=== PATIENT | male | born 1960 | race African-American/Black ===

== ENCOUNTER 2021-12-23 06:34 | Inpatient (IN) | payer OTHER ==
[2021-12-19 15:14] VITALS: BMI 34.2
[2021-12-23] MEDS ORDERED: Lidocaine 1% MPF 2 ML VIAL ONE (06:58)
[2021-12-23] MEDS ORDERED: CEFAZOLIN 2 GM VIAL ONE (07:02)
[2021-12-23] MEDS ORDERED: Sodium Chloride 0.9% 100 ML ONE (07:02)
[2021-12-23] MEDS ORDERED: Dexmedetomidine 200 MCG/2 ML VIAL ONE (07:03)
[2021-12-23] MEDS ORDERED: fentaNYL Citrate/PF 100 MCG/2 ML SYRINGE ONE ×2 (07:03→08:39)
[2021-12-23] MEDS ORDERED: Thrombin 5000 UNITS/5 ML VIAL ONE (07:17)
[2021-12-23] MEDS ORDERED: Levofloxacin 500 mg/D5W 100 ml Premix Bag ONE (07:38)
[2021-12-23] MEDS ORDERED: Clindamycin/D5W 900 mg/50 ml Premix Bag ONE (07:39)
[2021-12-23] MEDS ORDERED: Glycopyrrolate 0.2 MG/ML 5 ML SYRINGE ONE (08:18)
[2021-12-23] MEDS ORDERED: NEOSTIGMINE 3 MG/3 ML SYR 3 MG/3 ML SYRINGE ONE (08:18)
[2021-12-23] MEDS ORDERED: Rocuronium Bromide 10 MG/ML (10ML VIAL) ONE (08:18)
[2021-12-23] MEDS ORDERED: Ondansetron PF 4 MG/2 ML Vial ONE (08:18)
[2021-12-23] MEDS ORDERED: ePHEDrine 50 MG/ML VIAL ONE (08:18)
[2021-12-23] MEDS ORDERED: PROPOFOL 200 MG/20 ML VIAL ONE (08:18)
[2021-12-23] MEDS ORDERED: Dexamethasone 20 MG/5 ML VIAL ONE (08:18)
[2021-12-23 08:27] LABS: SARS-CoV-2 NAA Rapid Test Not Detected (NotDetected)
[2021-12-23] MEDS ORDERED: SUGAMMADEX SODIUM 200 MG/2 ML VIAL ONE (09:23)
[2021-12-23] MEDS ORDERED: Milk Of Magnesia 30 ML UDCUP PO PRN (09:34)
[2021-12-23] MEDS ORDERED: Cyclobenzaprine 10 MG TAB PO PRN (09:34)
[2021-12-23] MEDS ORDERED: Morphine 2 MG/ML VIAL SLOW IVP PRN (09:34)
[2021-12-23] MEDS ORDERED: diphenhydrAMINE 25 MG CAP PO PRN (09:34)
[2021-12-23] MEDS ORDERED: Ondansetron PF 4 MG/2 ML Vial IVP PRN (09:34)
[2021-12-23] MEDS ORDERED: Promethazine 25 MG TAB PO PRN (09:34)
[2021-12-23] MEDS ORDERED: Acetaminophen/Codeine 30-300mg Tablet PO PRN ×2 (09:34)
[2021-12-23] MEDS ORDERED: Mag-Al 1200 mg/1200 mg/30 ML UDCUP PO PRN (09:34)
[2021-12-23] MEDS ORDERED: traMADol HCl 50 MG TAB PO PRN (09:34)
[2021-12-23] MEDS ORDERED: PROPOFOL 20 ML ONE (09:42)
[2021-12-23] MEDS ORDERED: Morphine 4 MG/ML VIAL SLOW IVP PRN (12:41)
[2021-12-23] MEDS ORDERED: HYDROcodone/Acetaminophen 5/325 mg Tablet PO PRN (13:10)
[2021-12-23] MEDS: Clindamycin/D5W 900 MG in Premix Bag 1 BAG IVPB SCH ×2 (15:57→23:44)
[2021-12-23] MEDS: HYDROcodone/Acetaminophen 5/325 mg Tablet PO PRN ×2 (15:57→21:39)
[2021-12-24] MEDS: Tamsulosin HCl 0.4 MG CAP PO SCH (05:29)
[2021-12-24] MEDS: HYDROcodone/Acetaminophen 5/325 mg Tablet PO PRN ×3 (06:34→20:10)
[2021-12-24] MEDS: Clindamycin/D5W 900 MG in Premix Bag 1 BAG IVPB SCH ×2 (08:56→16:26)
[2021-12-24] MEDS: Lisinopril 20 MG TAB PO SCH (08:56)
[2021-12-24] MEDS: Gabapentin 300 MG CAP PO SCH (08:57)
[2021-12-25] MEDS: Clindamycin/D5W 900 MG in Premix Bag 1 BAG IVPB SCH ×4 (00:17→23:55)
[2021-12-25] MEDS: HYDROcodone/Acetaminophen 5/325 mg Tablet PO PRN ×2 (03:39→20:49)
[2021-12-25] MEDS: Tamsulosin HCl 0.4 MG CAP PO SCH (05:33)
[2021-12-25] MEDS: Gabapentin 300 MG CAP PO SCH (08:57)
[2021-12-25] MEDS: Lisinopril 20 MG TAB PO SCH (08:58)
[2021-12-25] MEDS ORDERED: Loratadine 10 MG TAB PO PRN (17:44)
[2021-12-25] MEDS ORDERED: Clindamycin/D5W 900 MG in Premix Bag 1 BAG IVPB SCH (22:00)
[2021-12-26] MEDS: Tamsulosin HCl 0.4 MG CAP PO SCH (05:19)
[2021-12-26] MEDS: Clindamycin/D5W 900 MG in Premix Bag 1 BAG IVPB SCH (08:16)
[2021-12-26] MEDS: Lisinopril 20 MG TAB PO SCH (08:16)
[2021-12-26] MEDS: Gabapentin 300 MG CAP PO SCH (08:17)
[2021-12-26] MEDS: HYDROcodone/Acetaminophen 5/325 mg Tablet PO PRN (08:19)
[2021-12-26 12:39] VITALS: BP 90/60; TEMP 97.6
== END 2021-12-26 15:53 | disposition home or self-care (01) | DRG 517 ==
LOC: SDC 06:34 → SJJU 11:50 → OBSVTOIN 12-25 12:18
PROVIDERS: ADMIT Neurological Surgery; ATTEND Neurological Surgery
PROC: 01NB0ZZ Release Lumbar Nerve, Open Approach (ICD-10-PCS; principal; 2021-12-23)
PROC: 01NR0ZZ Release Sacral Nerve, Open Approach (ICD-10-PCS; 2021-12-23)
DX: M48.062 Spinal stenosis, lumbar region with neurogenic claudication (principal); Z20.822 Contact with and (suspected) exposure to COVID-19; M48.07 Spinal stenosis, lumbosacral region; I10 Essential (primary) hypertension; G47.33 Obstructive sleep apnea (adult) (pediatric); N40.0 Benign prostatic hyperplasia without lower urinary tract symptoms; Z99.89 Dependence on other enabling machines and devices; Z85.46 Personal history of malignant neoplasm of prostate; Z92.21 Personal history of antineoplastic chemotherapy; Z98.890 Other specified postprocedural states; Z79.899 Other long term (current) drug therapy; Z88.1 Allergy status to other antibiotic agents
CPT/HCPCS: 96365; 96375; 96376; G0378; J1956; J2270; J2704; J3370; J3490; U0002